=== PATIENT | female | born 1970 | race Caucasian/White ===

== ENCOUNTER 2017-12-02 11:42 | Inpatient (IN) ==
--- NOTE | 2017-12-02 07:40 | Discharge Summary ---
<Devora Quintana E - Last Filed: 12/02/17 07:38> Date of Encounter: 12/02/17 - Discharge Diagnosis (1) Osteoarthritis of right knee Priority: Primary Status: Chronic Qualifiers: Osteoarthritis type: unspecified Qualified Code(s): M17.11 - Unilateral primary osteoarthritis, right knee (2) Chronic back pain Priority: Secondary Status: Chronic Qualifiers: Back pain location: back pain in unspecified location Back pain laterality : unspecified Qualified Code(s): M54.9 - Dorsalgia, unspecified; G89.29 - Other chronic pain; G89.29 - Other chronic pain (3) HTN (hypertension) Priority: Secondary Status: Chronic Qualifiers: Hypertension type: unspecified Qualified Code(s): I10 - Essential (primary ) hypertension (4) Anxiety Priority: Secondary Status: Chronic (5) Depression Priority: Secondary Status: Chronic Qualifiers: Depression Type: unspecified Qualified Code(s): F32.9 - Major depressive disorder, single episode, unspecified (6) Mitral valve prolapse Priority: Secondary Status: Chronic (7) GERD (gastroesophageal reflux disease) Priority: Secondary Status: Chronic Qualifiers: Esophagitis presence: esophagitis presence not specified Qualified Code(s) : K21.9 - Gastro-esophageal reflux disease without esophagitis - Discharge Medications Home Medications: Acebutolol HCl 200 mg PO BID 06/18/16 [History] Albuterol Sulfate [Albuterol Inhaler] 2 puff IH Q4HR PRN 06/18/16 [History] LORazepam [Ativan] 0.5 mg PO QPM PRN 06/18/16 [History] Loratadine [Claritin] 10 mg PO QPM 06/18/16 [History] Omeprazole [PriLOSEC] 20 mg PO QPM 06/18/16 [History] Ramipril [Altace] 10 mg PO QPM 06/18/16 [History] Sertraline [Zoloft] 150 mg PO HS 06/18/16 [History] Oxycodone HCl/Acetaminophen [Percocet 10-325 mg Tablet] 1 - 2 tab PO Q4-6H PRN 07/26/16 [History] Ascorbic Acid [Vitamin C] 1,000 mg PO 12/02/17 [History] Aspirin Enteric Coated [Aspirin EC] 325 mg PO DAILY 21 Days #21 tablet. [Rx] Cyclobenzaprine [Flexeril] 10 mg PO HS 12/02/17 [History] Ergocalciferol (VITAMIN D2) [Vitamin D] 800 unit PO DAILY 12/02/17 [History] Gabapentin [Neurontin] 400 mg PO TID 12/02/17 [History] Magnesium 250 mg PO DAILY 12/02/17 [History] Melatonin/Pyridoxine HCl (B6) [Melatonin 3 mg Tablet] 1 tab PO DAILY 12/02/17 [ History] Vitamin E 1,000 unit PO DAILY 12/02/17 [History] hydroCHLOROthiazide [Hydrochlorothiazide] 25 mg PO DAILY 12/02/17 [History] Allergies/Adverse Reactions: 3 Allergy/AdvReac Type Severity Reaction Status Date / Time methocarbamol [From Robaxin] Allergy Hives Verified 12/02/17 12:04 morphine AdvReac Vomiting Verified 12/02/17 12:04 Primary care physician: Evan Martinez MD - Patient Status Disposition: Home, Self-Care Condition: Good - Discharge Instructions Follow Up With: Evan Martinez MD [Primary Care Provider] - - Hospital Course Hospital course: Ms. Pike is a 47 year old female - Time Spent with Patient Total time spent providing and/or coordinating discharge services: <Florian Silva - Last Filed: 12/04/17 08:08> Date of Encounter: 12/04/17 Time of Encounter: 08:08 - Discharge Diagnosis (1) Mitral valve prolapse Priority: Secondary Status: Chronic (2) HTN (hypertension) Priority: Secondary Status: Chronic Qualifiers: Hypertension type: essential hypertension Qualified Code(s): I10 - Essential (primary) hypertension (3) Osteoarthritis of right knee Priority: Primary Status: Chronic Qualifiers: Osteoarthritis type: unspecified Qualified Code(s): M17.11 - Unilateral primary osteoarthritis, right knee (4) Chronic back pain Priority: Secondary Status: Chronic Qualifiers: Back pain location: back pain in unspecified location Back pain laterality : unspecified Qualified Code(s): M54.9 - Dorsalgia, unspecified; G89.29 - Other chronic pain; G89.29 - Other chronic pain (5) HTN (hypertension) Priority: Secondary Status: Chronic Qualifiers: Hypertension type: unspecified Qualified Code(s): I10 - Essential (primary ) hypertension (6) Anxiety Priority: Secondary Status: Chronic (7) Depression Priority: Secondary Status: Chronic Qualifiers: Depression Type: unspecified Qualified Code(s): F32.9 - Major depressive disorder, single episode, unspecified (8) GERD (gastroesophageal reflux disease) Priority: Secondary Status: Chronic Qualifiers: Esophagitis presence: esophagitis presence not specified Qualified Code(s) : K21.9 - Gastro-esophageal reflux disease without esophagitis (9) Status post revision of total replacement of right knee Priority: Primary Status: Acute (10) Obesity (BMI 35.0-39.9 without comorbidity) Priority: Secondary Status: Chronic (11) Acute blood loss anemia Priority: Primary Status: Acute Primary care physician: Evan Martinez MD - Patient Status Functional capacity at discharge: uses cane/walker Overall status at discharge: patient is progressing back to baseline - Hospital Course Hospital course: Ms. Pike is a 47 year old female Status post revision right total knee. The patient had an uneventful postoperative course. They received antibiotics and physical therapy and were discharged in stable condition. There will follow -up in the office in 2 weeks. - Time Spent with Patient Total time spent providing and/or coordinating discharge services:
--- NOTE | 2017-12-02 07:44 | Physician Discharge Referral ---
Home Health/Hosp Referral Info Transfer to: Home Health Attending Provider: Dr Florian Silva - Diagnosis (1) Osteoarthritis of right knee Priority: Primary Status: Chronic (2) Chronic back pain Priority: Secondary Status: Chronic (3) HTN (hypertension) Priority: Secondary Status: Chronic (4) Anxiety Priority: Secondary Status: Chronic (5) Depression Priority: Secondary Status: Chronic (6) Mitral valve prolapse Priority: Secondary Status: Chronic (7) GERD (gastroesophageal reflux disease) Priority: Secondary Status: Chronic (8) Status post revision of total replacement of right knee Priority: Primary Status: Acute - Respiratory Orders Smoking Cessation: Smoking cessation has been advised. For more information, call the [place] Tobacco Quit Line at 7-857-KPOZ-NOW. - Dressing/Wound Care Site: right knee Type of Dressing/Treatments w/Frequency: Opsite placed. Keep dressing intact until first follow up appointment. If > 50% saturated, notify office, remove dressing and place appropriate dressing back in place. Leave Zipline intact. Opsite dressing is water resistant, not water- proof. OK to shower, but do not get dressing wet. - Diet/Nutrition Diet/Nutrition Orders: Regular - Activity Activity Orders: Up ad lary, Ambulate, Chair, Walker Activity: List: Total Knee replacement Precautions x 6 weeks Apply cold therapy wrap 3-6x/day for 20 minutes at a time. Encourage ambulation throughout the day and incentive spirometer 10x/hour. Elevate affected extremity above heart as tolerated. Brace: Wear knee immobilizer at night x 2 weeks. - Services Needed Following services are medically necessary services: Nursing, Home Health Aide, Physical Therapy, Occupational Therapy - Transfer Medications Prescriptions: Aspirin Enteric Coated [Aspirin EC] 325 mg PO DAILY 21 Days #21 tablet.dr [place] Medications: Acebutolol HCl 200 mg PO BID 06/18/16 [History] Albuterol Sulfate [Albuterol Inhaler] 2 puff IH Q4HR PRN 06/18/16 [History] LORazepam [Ativan] 0.5 - 1 mg PO QPM PRN 06/18/16 [History] Loratadine [Claritin] 10 mg PO QPM 06/18/16 [History] Omeprazole [PriLOSEC] 20 mg PO QPM 06/18/16 [History] Ramipril [Altace] 10 mg PO QPM 06/18/16 [History] Sertraline [Zoloft] 150 - 200 mg PO HS 06/18/16 [History] Oxycodone HCl/Acetaminophen [Percocet 10-325 mg Tablet] 1 - 2 tab PO Q4-6H PRN 07/26/16 [History] Aspirin Enteric Coated [Aspirin EC] 325 mg PO DAILY 21 Days #21 tablet. [Rx] Allergies/Adverse Reactions: 3 Allergy/AdvReac Type Severity Reaction Status Date / Time methocarbamol [From Robaxin] Allergy Hives Verified 06/18/16 14:31 morphine AdvReac Vomiting Verified 06/18/16 14:31 Certification: Further, I certify that my clinical findings support that this patient is homebound (i.e. absences from home require considerable and taxing effort and are for medical reasons or catholic services or infrequently or short duration when for other reasons) because: Homebound Reason: Post-surgery restriction and or conditions limit ability to leave home Attestation: My signature below is to certify that this patient is under my care and that I, or nurse practitioner, or a physician supply assistant working with me, has a face-to- face encounter with this patient.
--- NOTE | 2017-12-02 11:51 | History & Physical Report ---
Date of Encounter: 12/02/17 Time of Encounter: 11:51 24 Hour HP Update - Instructions Instructions: If the History and Physical is less than 30 days old and was completed prior to A.M. admission and or procedure and has NOT been updated on calendar day of procedure please complete this update prior to performing procedure. - Update Patient reports changes in Medical Condition: No Changes in examination, assessment, or condition: No Changes in Medication: No Preop tests/diagnostics Reviewed: Yes Surgery Remains Indicated: Yes Consent for Planned Operative Procedure(s) Verified: Yes - Pre-Operative Checklist Preoperative Checklist Indicated: No Prophylactic Antibiotic Ordered: Yes Is VTE Prophylaxis Indicated?: Yes
[2017-12-02] MEDS ORDERED: CeFAZolin Syr 2,000MG/20 ML 2,000 MG/20 ML SYRINGE IVPB ONE (12:02)
[2017-12-02] MEDS ORDERED: Gabapentin 300 MG CAPSULE PO ONE (12:02)
[2017-12-02] MEDS ORDERED: Famotidine 20 MG/2 ML VIAL IVP ONE (12:02)
[2017-12-02] MEDS ORDERED: Lidocaine -MPF 1% 2 ML VIAL ID ONE (12:02)
[2017-12-02] MEDS ORDERED: Ringers Solution, Lactated 1,000 ML IVC SCH ×2 (12:15→16:59)
[2017-12-02] MEDS ORDERED: *HR* FentaNYL (PF) 100 MCG/2 ML VIAL ONE (12:31)
[2017-12-02] MEDS ORDERED: *HR* Midazolam HCl 2 MG/2 ML VIAL ONE ×2 (12:32→13:04)
[2017-12-02] MEDS ORDERED: *HR* Propofol 200 MG/20 ML VIAL IVP ONE (12:32)
[2017-12-02] MEDS ORDERED: Dexamethasone 4 MG/ML VIAL ONE (12:36)
[2017-12-02] MEDS ORDERED: Ondansetron 4 MG/2 ML VIAL ONE (12:36)
[2017-12-02] MEDS ORDERED: Lidocaine -MPF 2% 2 ML VIAL ONE (12:36)
--- NOTE | 2017-12-02 12:54 | Anesthesia Evaluation PreOp ---
Date of Encounter: 12/02/17 Time of Encounter: 13:00 - Past History Planned Operation: Rt TKA Revision Cardiac History: HTN, Hyperlipidemia Pulmonary History: Denies Any Significant HX CONSUMER LOAN OFFICER History: Denies Any Significant HX Other Medical History: GERD, Other (Bipolar, Obesity) Anesthesia History: No Prior Anesthetic Complications : No Alcohol Use: none Drug use: none Medications and Allergies Acebutolol HCl 200 mg PO BID 06/18/16 [History] Albuterol Sulfate [Albuterol Inhaler] 2 puff IH Q4HR PRN 06/18/16 [History] LORazepam [Ativan] 0.5 - 1 mg PO QPM PRN 06/18/16 [History] Loratadine [Claritin] 10 mg PO QPM 06/18/16 [History] Omeprazole [PriLOSEC] 20 mg PO QPM 06/18/16 [History] Ramipril [Altace] 10 mg PO QPM 06/18/16 [History] Sertraline [Zoloft] 150 - 200 mg PO HS 06/18/16 [History] Oxycodone HCl/Acetaminophen [Percocet 10-325 mg Tablet] 1 - 2 tab PO Q4-6H PRN 07/26/16 [History] Ascorbic Acid [Vitamin C] 1,000 mg PO 12/02/17 [History] Aspirin Enteric Coated [Aspirin EC] 325 mg PO DAILY 21 Days #21 tablet. [Rx] Cyclobenzaprine [Flexeril] 10 mg PO HS 12/02/17 [History] Ergocalciferol (VITAMIN D2) [Vitamin D] 800 unit PO DAILY 12/02/17 [History] Gabapentin [Neurontin] 400 mg PO TID 12/02/17 [History] Magnesium 250 mg PO DAILY 12/02/17 [History] Melatonin/Pyridoxine HCl (B6) [Melatonin 3 mg Tablet] 1 tab PO DAILY 12/02/17 [ History] Vitamin E 1,000 unit PO DAILY 12/02/17 [History] hydroCHLOROthiazide [Hydrochlorothiazide] 25 mg PO DAILY 12/02/17 [History] 3 Allergy/AdvReac Type Severity Reaction Status Date / Time methocarbamol [From Robaxin] Allergy Hives Verified 12/02/17 12:04 morphine AdvReac Vomiting Verified 12/02/17 12:04 - Meds/Allergy Pre-op Review Medications Reviewed: Yes Allergies Reviewed: Yes Beta Blockers on Current Med List: No Anesthesia Results - Labs Laboratory Tests 07/20/16 10/21/17 12:21 17:31 Hgb 11.6 Hct 35.7 Plt Count 295 Sodium 140 Potassium 4.1 BUN 11 Creatinine 0.83 - Imaging EKG: report reviewed (SR) Anesthesia Exam O2 Sat Height 1.68 m Height 1.68 m Weight 108.409 kg Weight 108.409 kg O2 Sat by Pulse Oximetry 96 Vital Signs Temp Pulse Resp BP Pulse Ox 98.7 F 79 18 129/73 96 12/02/17 12:00 12/02/17 12:00 12/02/17 12:00 12/02/17 12:00 12/02/17 12:00 Height: 5'6 Weight: 239 lbs NPO (# of Hours): MN Pain Scale: 0 - HEENT Pupil (Motor): Pupils equal, EOMI Mallampati: II Teeth: Normal Oral Opening: Greater than 3 - CONSUMER LOAN OFFICER LOC: Oriented [employer]SUMER LOAN OFFICER Motor: Normal RUE, Normal LUE, Normal RLE, Normal LLE, Normal Face [employer]SUMER LOAN OFFICER Sensory: Normal: RUE, LUE, RLE, LLE, Face - Cardiac Rhythm: Regular Murmur: None JVD: No Carotid Bruit: No - Pulmonary Breath Sounds: bilateral Clear Respiratory Effort: Symmetrical Anesthesia Assess/Plan ASA Score: 3 (Obese HTN Gerd) Modified [place] Scale for Level of Consciousness: Cooperative, oriented, and tranquil Anesthetic Plan: General, Regional Monitoring Plan: Standard Monitors Recovery Plan: PACU (Discussed GA and RA, agrees to proceed)
[2017-12-02] MEDS ORDERED: Bupivacaine/Clonidine Syringe 1 EACH SYRINGE ONE (13:01)
[2017-12-02] MEDS ORDERED: ROPIVACAINE HCL/PF 0.5% 30 ML VIAL ONE (13:01)
[2017-12-02] MEDS ORDERED: Tetracaine/PF 20 MG/2 ML AMPUL ONE (13:01)
[2017-12-02] MEDS ORDERED: Povidone-Iodine 22.5 ML, Sodium Chloride IRRigation 500 ML IR ONE (13:45)
[2017-12-02] MEDS ORDERED: Ondansetron 4 MG/2 ML VIAL IVP ONE (13:59)
[2017-12-02] MEDS ORDERED: *HR* Promethazine 25 MG/ML VIAL IVP PRN (13:59)
--- NOTE | 2017-12-02 14:10 | Anesthesia Procedures ---
Date of Encounter: 12/02/17 Time of Encounter: 01:33 Procedures: Anesthesia - Nerve Block Procedure Date: 12/02/17 Time: 13:35 Allergies/Adv Reactions: morphine, robaxin Surgical Procedure: right total knee arthroplasty revision Checklist: Correct Patient Identifier, Correct procedure, History checked Correct side: Right Blood Thinner: No Monitor Applied: EKG, BP, Pulse Oximetry Supplemental Oxygen via Nasal Cannula (L/min): 2 Sedation: Versed (mg): 4 Sedation: Fentanyl (mcg): 100 Indication: Post Op Analgesia Pre-op Neuro Deficits: No Block Type: Femoral, Other (IPAC) Sterile Technique: Yes Ultrasound used: Yes Anatomy identified: Yes Visual spread of Local: Yes Neuro Stimulation: Yes Nerve Stimulator Range: 0.2 - 0.4 mA Blood on Needle Aspiration: No Smooth Injection of Local: Yes Pain with Injection of Local: No Prep: Chlorhexadine Needle: 22 x 50 mm Stimuplex Local: Ropivacaine Volume (cc): 30 Number of Attempts: 1 Complications: None/effective block Vitals: see chart
[2017-12-02] MEDS ORDERED: *HR* HYDROmorphone 2 MG/ML SYRINGE ONE (14:12)
[2017-12-02] MEDS ORDERED: EPHEDrine 50 MG/ML VIAL ONE (14:38)
--- NOTE | 2017-12-02 14:41 | Orthopedic Operative Note ---
Date of procedure: 12/02/17 Pre-op diagnosis: Right knee arthritis Post-op diagnosis: same Procedure: Procedure: Right revision Total knee replacement from patellofemoral replacement Estimated blood loss: 200 cc Hardware: Metal and polyethylene replacement. Arthrex Femur: 4 Tibia: 4 PS insert:16 Exam Under anesthesia: Full flexion and extension no instability Procedural Notes: Grade 3 arthritic changes medial and lateral compartments. Operative procedure: The patient was brought to the operating room and placed on the operating room table. After general anesthesia was administered the operative knee was examined. Findings were noted in the exam under anesthesia. The operative extremity was prepped and draped in sterile surgical fashion. The patient received IV antibiotics prior to skin incision. A standard midline incision was made centered over the patella. The incision was made through the old incision, through the skin and subcutaneous tissue. A medial parapatellar tendon approach was performed. Care was taken to preserve tissue along the medial aspect of the patella. And to protect the patella tendon. The deep MCL was released off the medial tibia. The infra patella fat pad was excised. Knee was brought into flexion. Patient's femoral component was intact. Patient noted to have grade 3 arthritic changes medial and lateral compartments. Femoral component was removed with an osteotome without significant bone loss. The entry hole was made for the intramedullary femoral guide. The guide was seated in 6 degrees of valgus. Anterior cut was made followed by the distal cut. The ACL the PCL the medial and the lateral menisci were excised. The tibia was subluxed forward. The entry hole was made for the intramedullary tibial guide. Guide was seated to resect 2 mm off the more abnormal side. The knee was brought into flexion the distal femur was sized to a 4. The femoral guide was seated, the anterior cut was made followed by the posterior condylar cut, followed by the chamfer cuts. The finishing guide was seated the box cut was made and the lug holes were drilled. The tibia was sized to a 4, the tibial tray was seated and prepared with the large drill followed by the fin cutter. Trial reduction revealed full extension no varus valgus instability with the appropriate 16 PS Vera. The patella was everted, the patella component was well fixed and in good position. Trial reduction revealed excellent patella tracking. All trial components were removed all bony surfaces were irrigated. The tibia was cemented first followed by the femur. The 16 PS Vera was seated and the knee was brought into full extension. After the cement had hardened, the knee sat for 2 minutes with a Betadine saline solution. The PA closed the knee. The knee was then irrigated out with 2 L of pulse irrigation. The extensor mechanism was closed with #2 FiberWire suture and #2 PDS suture. The subcutaneous tissue was then irrigated and closed deep with #1 PDS suture superficially with 0 PDS suture and skin was closed with skin peter. The patient was then placed in a sterile dressing and a postoperative brace extubated and transferred to recovery room in stable condition. Anesthesia: GETA Surgeon: Florian Silva (26) Was there an sales assistant entertainment and media present: No Estimated blood loss (cc): 200 Condition: stable Disposition: PACU
[2017-12-02] MEDS: *HR* HYDROmorphone (PF) 1 MG/ML SYRINGE IVP PRN ×6 (15:22→23:44)
[2017-12-02] MEDS ORDERED: Ethanol\\Acetic Acid\\Na Ace\\Ben 1,000 ML IRRIG.SOLN IR ONE (15:29)
[2017-12-02 15:42] LABS: Hematocrit 40.8 % (35.3-44.9); Hemoglobin 13.1 g/dL (11.5-15.4)
--- NOTE | 2017-12-02 16:17 | Anesthesia Evaluation Post Op ---
Date of Encounter: 12/02/17 Time of Encounter: 16:20 - Vital Signs Vital Signs: Vital Signs/O2 Sat/Glucose, Most Current Temp Pulse Resp BP Pulse Ox 12/02/17 15:59 72 16 120/82 98 12/02/17 15:49 75 20 112/80 100 12/02/17 15:39 97.0 F L 77 18 121/81 97 12/02/17 15:29 73 16 108/70 98 12/02/17 15:19 76 16 99/70 97 12/02/17 15:09 97.0 F L 73 12 105/73 98 - Lungs Lungs: Clear Ascult./Percussion - Airway Airway: Non-obstructed - Cardiovascular Irregular Rate - Pain Pain Scale: 2 - Nausea Vomiting Nausea Vomiting: Not Present - Hydration Hydration: Ice chips - Discharge PostOp Status: Transfer Patient to floor
[2017-12-02] MEDS ORDERED: *HR* OxyCODONE Immed Rel 5 MG TABLET PO PRN (16:59)
[2017-12-02] MEDS ORDERED: MOM Conc 10 ML UD.LIQ PO PRN (16:59)
[2017-12-02] MEDS ORDERED: Naloxone 0.4 MG/ML INJ IVP PRN (16:59)
[2017-12-02] MEDS ORDERED: Ondansetron 4 MG/2 ML VIAL IVP PRN (16:59)
[2017-12-02] MEDS ORDERED: Temazepam 15 MG CAPSULE PO PRN (16:59)
[2017-12-02] MEDS ORDERED: Sennosides 8.6 MG TABLET PO PRN (16:59)
[2017-12-02] MEDS: Gabapentin 400 MG CAPSULE PO SCH ×2 (17:49→20:20)
[2017-12-02] MEDS: *HR* Enoxaparin 30 MG/0.3 ML SYRINGE SQ SCH (17:55)
[2017-12-02] MEDS ORDERED: *HR* Enoxaparin 30 MG/0.3 ML SYRINGE SQ SCH (18:00)
[2017-12-02] MEDS: CeFAZolin Premix DUPLEX 2,000 MG/50 ML BAG IVPB SCH (20:50)
[2017-12-02] MEDS: *HR* OxyCODONE Immed Rel 5 MG TABLET PO PRN (22:22)
[2017-12-03] MEDS: *HR* OxyCODONE Immed Rel 5 MG TABLET PO PRN ×2 (03:19→08:36)
[2017-12-03] MEDS: *HR* HYDROmorphone (PF) 1 MG/ML SYRINGE IVP PRN ×3 (04:41→20:44)
[2017-12-03] MEDS: *HR* Enoxaparin 30 MG/0.3 ML SYRINGE SQ SCH ×2 (04:42→16:52)
[2017-12-03] MEDS: CeFAZolin Premix DUPLEX 2,000 MG/50 ML BAG IVPB SCH (04:42)
--- NOTE | 2017-12-03 06:26 | Orthopedics Progress Note ---
Date of Encounter: 12/03/17 Time of Encounter: 06:26 - Assessment and Plan (1) Mitral valve prolapse Current Visit: No Status: Chronic (2) HTN (hypertension) Current Visit: No Status: Chronic Qualifiers: Hypertension type: essential hypertension Qualified Code(s): I10 - Essential (primary) hypertension (3) Osteoarthritis of right knee Current Visit: No Status: Chronic Qualifiers: Osteoarthritis type: unspecified Qualified Code(s): M17.11 - Unilateral primary osteoarthritis, right knee (4) Chronic back pain Current Visit: No Status: Chronic Qualifiers: Back pain location: back pain in unspecified location Back pain laterality : unspecified Qualified Code(s): M54.9 - Dorsalgia, unspecified; G89.29 - Other chronic pain; G89.29 - Other chronic pain (5) HTN (hypertension) Current Visit: No Status: Chronic Qualifiers: Hypertension type: unspecified Qualified Code(s): I10 - Essential (primary ) hypertension (6) Anxiety Current Visit: No Status: Chronic (7) Depression Current Visit: No Status: Chronic Qualifiers: Depression Type: unspecified Qualified Code(s): F32.9 - Major depressive disorder, single episode, unspecified (8) GERD (gastroesophageal reflux disease) Current Visit: No Status: Chronic Qualifiers: Esophagitis presence: esophagitis presence not specified Qualified Code(s) : K21.9 - Gastro-esophageal reflux disease without esophagitis (9) Status post revision of total replacement of right knee Current Visit: No Status: Acute (10) Obesity (BMI 35.0-39.9 without comorbidity) Current Visit: Yes Status: Chronic Subjective Interval history: Patient was seen this morning doing well without complaints. Afebrile vital signs stable. Operative extremity: Neurovascularly intact Dressing clean dry and intact Calves tender Assessment and plan: Continue with postoperative care Doppler today Objective Vital signs: Vital Signs Temp Pulse Resp BP Pulse Ox 12/03/17 03:24 98.6 F 79 17 120/76 99 12/02/17 23:49 97.4 F L 76 17 122/77 100 12/02/17 20:37 97.8 F 75 16 97/66 98 12/02/17 20:35 107/60 12/02/17 19:00 97.7 F 77 18 109/73 100 12/02/17 18:01 73 16 103/66 100 12/02/17 16:40 97.6 F 73 14 103/53 100 12/02/17 16:16 72 16 110/70 98 12/02/17 16:09 97.1 F L 66 16 112/87 97 12/02/17 15:59 72 16 120/82 98 12/02/17 15:49 75 20 112/80 100 12/02/17 15:39 97.0 F L 77 18 121/81 97 12/02/17 15:29 73 16 108/70 98 12/02/17 15:19 76 16 99/70 97 12/02/17 15:09 97.0 F L 73 12 105/73 98 12/02/17 12:00 98.7 F 79 18 129/73 96 Intake and Output 12/02/17 12/02/17 12/03/17 15:59 23:59 07:59 Intake Total 150 / 150 Output Total 200 / 200 350 / 350 Balance -200 / -200 -200 / -200 Intake: IV Fluids 50 / 50 Ancef Premix DUPLEX 2,000 mg In 50 / 50 50 ml @ 100 mls/hr IVPB Q8H [facility] Rx#:[id number] Oral 100 / 100 Output: Urine 0 / 0 350 / 350 Estimated Blood Loss 200 / 200 Other: Weight 108.409 kg - Labs CBC & BMP: 12/02/17 15:19 - VTE Documentation of Mechanical Device: Venous foot pump, device Consult Discharge Plan - Plan Referrals: Evan Martinez MD [Primary Care Provider] -
[2017-12-03 07:26] LABS: Hematocrit 29.6 % (35.3-44.9)
[2017-12-03 07:37] LABS: Hemoglobin 9.6 g/dL (11.5-15.4)
[2017-12-03 07:39] LABS: BUN/Creatinine Ratio 11 (6-26); Blood Urea Nitrogen 7 mg/dL (6-20); Calcium 8.2 mg/dL (8.6-10.3); Carbon Dioxide 26 mEq/L (23-29); Chloride 100 mEq/L (98-107); Glucose 104 mg/dL (70-105); Osmolality,Calculated 280 (280-300); Sodium 136 mEq/L (136-145); eGFR For African Americans > 60 (> 60); eGFR For Non-African Americans > 60 (> 60)
[2017-12-03] MEDS ORDERED: Melatonin 3 MG TABLET PO SCH (09:00)
[2017-12-03] MEDS: hydroCHLOROthiazide 25 MG TABLET PO SCH (10:23)
[2017-12-03] MEDS: Magnesium Oxide 400 MG TABLET PO SCH (10:23)
[2017-12-03] MEDS: Gabapentin 400 MG CAPSULE PO SCH ×3 (10:24→20:45)
[2017-12-03] MEDS: Cholecalciferol (D-3) 1,000 UNIT TABLET PO SCH (10:24)
[2017-12-03] MEDS ORDERED: *HR* OxyCODONE Immed Rel 5 MG TABLET PO PRN ×2 (12:50)
[2017-12-03] MEDS: *HR* HYDROcodone/Acet 5/325 mg TABLET PO PRN (13:31)
[2017-12-03] MEDS: *HR* OxyCODONE Immed Rel 5 MG TABLET PO SCH (15:13)
[2017-12-03] MEDS ORDERED: *HR* LORazepam 0.5 MG TABLET PO PRN (17:07)
--- NOTE | 2017-12-03 17:51 | Event Note ---
Date of Encounter: 12/03/17 Time of Encounter: 12:00 PCR- POD#1 R TKR revision 12/02/17 Ricardo PCR - Patient seen at bedside. Pain control: Adequate Participating in PT. All questions and concerns addressed. Educated on use of incentive spirometer, ambulation, and hydration. Patient educated on post-operative restrictions and care. Addressed: Chronic pain - patient not receiving MME of chronic pain meds - ordered and patient to get only breakthrough while inpatient. She is shivering and states she is feeling cold. Will adjust meds and have patient continued to be monitored closely by nursing and staff. D/C plan: Home with
[2017-12-03] MEDS ORDERED: Loratadine 10 MG TABLET PO SCH (21:00)
[2017-12-04] MEDS: *HR* OxyCODONE Immed Rel 5 MG TABLET PO SCH ×2 (00:42→07:49)
[2017-12-04] MEDS: *HR* HYDROcodone/Acet 5/325 mg TABLET PO PRN ×2 (02:37→11:57)
[2017-12-04] MEDS: *HR* Enoxaparin 30 MG/0.3 ML SYRINGE SQ SCH (05:57)
[2017-12-04 07:09] LABS: BUN/Creatinine Ratio 9 (6-26); Blood Urea Nitrogen 6 mg/dL (6-20); Calcium 8.8 mg/dL (8.6-10.3); Carbon Dioxide 32 mEq/L (23-29); Chloride 100 mEq/L (98-107); Glucose 131 mg/dL (70-105); Osmolality,Calculated 283 (280-300); Potassium 2.8 mEq/L (3.5-5.1); Sodium 137 mEq/L (136-145); eGFR For African Americans > 60 (> 60); eGFR For Non-African Americans > 60 (> 60)
[2017-12-04 07:12] VITALS: BP 118/67
[2017-12-04 07:20] LABS: Hematocrit 30.3 % (35.3-44.9); Hemoglobin 9.9 g/dL (11.5-15.4)
[2017-12-04] MEDS: Gabapentin 400 MG CAPSULE PO SCH (07:49)
[2017-12-04] MEDS: hydroCHLOROthiazide 25 MG TABLET PO SCH (07:50)
[2017-12-04] MEDS: Cholecalciferol (D-3) 1,000 UNIT TABLET PO SCH (07:50)
[2017-12-04] MEDS: Magnesium Oxide 400 MG TABLET PO SCH (07:50)
--- NOTE | 2017-12-04 08:09 | Orthopedics Progress Note ---
Date of Encounter: 12/04/17 Time of Encounter: 08:09 - Assessment and Plan (1) Mitral valve prolapse Current Visit: No Status: Chronic (2) HTN (hypertension) Current Visit: No Status: Chronic Qualifiers: Hypertension type: essential hypertension Qualified Code(s): I10 - Essential (primary) hypertension (3) Osteoarthritis of right knee Current Visit: No Status: Chronic Qualifiers: Osteoarthritis type: unspecified Qualified Code(s): M17.11 - Unilateral primary osteoarthritis, right knee (4) Chronic back pain Current Visit: No Status: Chronic Qualifiers: Back pain location: back pain in unspecified location Back pain laterality : unspecified Qualified Code(s): M54.9 - Dorsalgia, unspecified; G89.29 - Other chronic pain; G89.29 - Other chronic pain (5) HTN (hypertension) Current Visit: No Status: Chronic Qualifiers: Hypertension type: unspecified Qualified Code(s): I10 - Essential (primary ) hypertension (6) Anxiety Current Visit: No Status: Chronic (7) Depression Current Visit: No Status: Chronic Qualifiers: Depression Type: unspecified Qualified Code(s): F32.9 - Major depressive disorder, single episode, unspecified (8) GERD (gastroesophageal reflux disease) Current Visit: No Status: Chronic Qualifiers: Esophagitis presence: esophagitis presence not specified Qualified Code(s) : K21.9 - Gastro-esophageal reflux disease without esophagitis (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 Afebrile vital signs stable. Operative extremity: Neurovascularly intact Dressing clean dry and intact Calves tender Assessment and plan: Continue with postoperative care Doppler negative, discharged today Objective Vital signs: Vital Signs Temp Pulse Resp BP Pulse Ox 12/04/17 06:38 98.7 F 98 16 118/67 95 12/04/17 03:24 99.2 F 94 16 117/75 96 12/04/17 00:39 98.4 F 94 16 131/84 97 12/03/17 23:14 98.7 F 110 16 97/61 95 01/09/18 20:20 99.2 F 102 17 108/75 97 12/03/17 18:41 100.7 F H 104 17 100/65 97 12/03/17 16:27 100.4 F H 96 16 96/53 92 12/03/17 11:17 99.0 F 83 16 111/68 99 Intake and Output 12/03/17 12/04/17 12/04/17 23:59 07:59 15:59 Intake Total 100 / 100 700 / 700 Output Total 1050 / 1050 Balance 100 / 100 -350 / -350 Intake: Oral 100 / 100 700 / 700 Output: Urine 1050 / 1050 Other: # Voids 2 - Labs CBC & BMP: 12/04/17 06:18 12/04/17 06:18 Labs: Abnormal lab results Hgb 9.9 g/dL (11.5-15.4) L 12/04/17 06:18 Hct 30.3 % (35.3-44.9) L 12/04/17 06:18 Potassium 2.8 mEq/L (3.5-5.1) L 12/04/17 06:18 Carbon Dioxide 32 mEq/L (23-29) H 12/04/17 06:18 Glucose 131 mg/dL (70-105) H 12/04/17 06:18 - VTE Documentation of Mechanical Device: Venous foot pump, device Consult Discharge Plan - Plan Referrals: Evan Martinez MD [Primary Care Provider] -
[2017-12-04] MEDS ORDERED: Ascorbic Acid 500 MG TABLET PO SCH (09:00)
== END 2017-12-04 13:25 | disposition home or self-care (01) | DRG 302 ==
LOC: SAMDAY 11:42 → 3NENU 16:15
PROVIDERS: ADMIT Orthopaedic Surgery; ATTEND Orthopaedic Surgery

== ENCOUNTER 2019-09-11 00:47 | Observation (INO) ==
[2019-09-11] MEDS ORDERED: Naloxone 0.4 MG/ML INJ IVP PRN (06:02)
[2019-09-11 06:44] LABS: Hematocrit 38.1 % (35.3-44.9); Hemoglobin 12.8 g/dL (11.5-15.4); Mean Corpuscular HGB Conc 33.6 g/dL (31.6-35.5); Mean Corpuscular Hemoglobin 28.6 pg (28.0-33.3); Mean Platelet Volume 10.2 fL (9.4-12.4); Platelet Count 240 K/mcL (140-400); Red Blood Count 4.48 M/mcL (3.82-4.97); Red Cell Distribution Width 14.2 % (11.5-14.5); White Blood Count 4.4 K/mcL (4.3-11.1)
[2019-09-11 07:07] LABS: Alanine Aminotransferase 15 Units/L (7-52); Albumin 4.1 g/dL (3.5-5.7); Albumin/Globulin Ratio 1.7 (1.1-2.2); Alkaline Phosphatase 79 Units/L (34-104); Aspartate Amino Transferase 14 Units/L (13-39); BUN/Creatinine Ratio 15 (6-26); Bilirubin,Total 0.6 mg/dL (0.3-1.0); Blood Urea Nitrogen 12 mg/dL (6-20); Calcium 8.7 mg/dL (8.6-10.3); Carbon Dioxide 28 mEq/L (23-29); Chloride 99 mEq/L (98-107); Globulin 2.4 g/dL (2.4-3.5); Glucose 141 mg/dL (70-105); Magnesium 2.2 mg/dL (1.6-2.6); Osmolality,Calculated 286 (280-300); Potassium 3.2 mEq/L (3.5-5.1); Sodium 137 mEq/L (136-145); Total Protein 6.5 g/dL (6.4-8.9); eGFR For African Americans > 60 (> 60); eGFR For Non-African Americans > 60 (> 60)
[2019-09-11] MEDS ORDERED: Potassium Chloride Elixir 20 MEQ/15 ML UDC PO ONE (08:24)
[2019-09-11] MEDS ORDERED: *HR* LORazepam 0.5 MG TABLET PO PRN (09:16)
[2019-09-11] MEDS ORDERED: Regadenoson 0.4 MG/5 ML SYRINGE IVP ONE (09:29)
[2019-09-11] MEDS: *HR* OxyCODONE/APAP 10/325 TABLET PO PRN ×2 (15:10→20:45)
[2019-09-11] MEDS: Gabapentin 400 MG CAPSULE PO SCH ×2 (15:10→20:43)
[2019-09-11] MEDS: *HR* Heparin 5,000 UNIT/ML VIAL SQ SCH (17:57)
[2019-09-11] MEDS ORDERED: Loratadine 10 MG TABLET PO SCH (18:00)
[2019-09-12] MEDS: *HR* Heparin 5,000 UNIT/ML VIAL SQ SCH (05:49)
[2019-09-12 07:09] VITALS: BP 120/81
[2019-09-12 07:20] LABS: Basophils % 0.7 %; Eosinophils # 0.1 K/mcL (0.0-0.6); Hemoglobin 12.4 g/dL (11.5-15.4); Immature Granulocytes % 0.2 % (0-4); Lymphocytes # 1.4 K/mcL (0.6-4.6); Lymphocytes % 35.7 %; Mean Corpuscular HGB Conc 33.5 g/dL (31.6-35.5); Mean Corpuscular Hemoglobin 28.4 pg (28.0-33.3); Mean Corpuscular Volume 84.7 fL (83.0-100.0); Mean Platelet Volume 10.3 fL (9.4-12.4); Monocytes # 0.5 K/mcL (0.0-1.3); Neutrophils # 1.9 K/mcL (1.6-8.9); Platelet Count 238 K/mcL (140-400); Red Blood Count 4.37 M/mcL (3.82-4.97); Red Cell Distribution Width 14.2 % (11.5-14.5); Segmented Neutrophils % 48.4 %
[2019-09-12 07:41] LABS: BUN/Creatinine Ratio 16 (6-26); Blood Urea Nitrogen 13 mg/dL (6-20); Calcium 9.2 mg/dL (8.6-10.3); Carbon Dioxide 29 mEq/L (23-29); Chloride 101 mEq/L (98-107); Glucose 108 mg/dL (70-105); Osmolality,Calculated 287 (280-300); Potassium 3.2 mEq/L (3.5-5.1); Sodium 138 mEq/L (136-145); eGFR For African Americans > 60 (> 60); eGFR For Non-African Americans > 60 (> 60)
[2019-09-12] MEDS: Gabapentin 400 MG CAPSULE PO SCH (09:27)
[2019-09-12] MEDS: *HR* OxyCODONE/APAP 10/325 TABLET PO PRN (09:51)
[2019-09-12] MEDS ORDERED: FLU Vac QV 19-20 (6Month+)/PF 0.5 ML SYRINGE IM ONE (11:27)
== END 2019-09-12 12:35 | disposition home or self-care (01) ==
LOC: 3BNU → SUATTDRO 02:13 → 3BNU 11:58
PROVIDERS: ADMIT Family Medicine; ATTEND Internal Medicine